=== PATIENT | female | born 1975 | race Caucasian/White ===

== ENCOUNTER → 2017-04-23 | Outpatient (CLI) | payer BC ==
[2017-04-23 11:41] LABS: CHOL/HDL RATIO 3.03 RATIO (0-4.0); LDL CHOLESTEROL,CALCULATED 83.6 mg/dL
== END ==
LOC: MOB LAB 10:13
PROVIDERS: ATTEND Nurse Practitioner Women's Health
DX: Z00.00 Encounter for general adult medical examination without abnormal findings (principal)
CPT/HCPCS: 36415; 80061; 82947